=== PATIENT | female | born 1960 | race Caucasian/White ===

== ENCOUNTER 2016-06-21 14:38 | Emergency (ER) | payer OTHER ==
[~2016-06-21] VITALS: Ht 147.3 cm; Wt 53.5 kg
[~2016-06-21 14:38] MED LIST: FUROSEMIDE20 MG PO; PRILOSEC20 MG PO; SPIRONOLACTONE50 MG PO; TRAMADOL HCL50 MG PO
[2016-06-21 18:47] LABS: UA SPECIFIC GRAVITY 1.015 (1.005-1.035); microscopic required? YES; urine erythrocyte 2+ (NEGATIVE)
[2016-06-21 19:16] VITALS: BP 119/43
== END 2016-06-21 19:16 | disposition home or self-care (01) ==
LOC: ED 14:38
PROVIDERS: Emergency Medicine
DX: R32 Unspecified urinary incontinence (principal); K74.69 Other cirrhosis of liver; B18.2 Chronic viral hepatitis C

== ENCOUNTER 2016-11-02 11:49 | Emergency (ER) | payer OTHER ==
[2016-11-02 12:53] LABS: BASOPHIL % 0.2 % (0-2)
[2016-11-02 13:07] LABS: ALBUMIN 3.5 g/dL (3.4-5.0); ALKALINE PHOSPHATASE 138 U/L (46-116); ALT/SGPT 35 U/L (14-59); AMYLASE 97 U/L (25-115); AST/SGOT 52 U/L (15-37); BILIRUBIN TOTAL 1.6 mg/dL (0.20-1.00); CARBON DIOXIDE 25.3 mmol/L (21-32); CHLORIDE SERUM 107 mmol/L (98-107); CREATININE SERUM 0.7 mg/dL (0.6-1.0); GFR1 > 60 mL/min; GLUCOSE SERUM 93 mg/dL (74-106); LIPASE 540 IU/L (73-393); SODIUM SERUM 138 mmol/L (136-145)
[2016-11-02 13:09] LABS: RED CELL DISTRIBUTION WIDTH 17.1 % (11.5-14.5)
[2016-11-02 13:10] LABS: PLATELET COUNT 41 x10^3mcL (130-400)
[2016-11-02 13:11] LABS: CALCIUM 8.8 mg/dL (8.5-10.1)
[2016-11-02 13:14] LABS: TOTAL PROTEIN, SERUM 8.3 g/dL (6.4-8.2)
[2016-11-02 16:41] VITALS: BP 100/72
== END 2016-11-02 16:30 | disposition home or self-care (01) ==
LOC: ED 11:49
PROVIDERS: Emergency Medicine Emergency Medical Services
DX: K85.90 Acute pancreatitis without necrosis or infection, unspecified (principal); I10 Essential (primary) hypertension
CPT/HCPCS: J2405

== ENCOUNTER 2017-01-17 12:20 | Inpatient (IN) | payer OTHER ==
[~2017-01-17] VITALS: Ht 152.4 cm; Wt 48.8 kg
[~2017-01-17 12:20] MED LIST changes: +PRILOSEC OTC20 M1 PO; -PRILOSEC20 MG PO
[2017-01-17 14:11] LABS: UA SPECIFIC GRAVITY <=1.005 (1.005-1.035); microscopic required? YES; urine erythrocyte 1+ (NEGATIVE)
[2017-01-17 14:48] LABS: RED CELL DISTRIBUTION WIDTH 16.2 % (11.5-14.5)
[2017-01-17 14:56] LABS: CALCIUM 8.7 mg/dL (8.5-10.1); CARBON DIOXIDE 26.3 mmol/L (21-32); CHLORIDE SERUM 105 mmol/L (98-107); CREATININE SERUM 0.6 mg/dL (0.6-1.0); GFR1 > 60 mL/min; GLUCOSE SERUM 105 mg/dL (74-106); POTASSIUM SERUM 3.7 mmol/L (3.5-5.1); SODIUM SERUM 141 mmol/L (136-145)
[2017-01-17 15:01] LABS: ALKALINE PHOSPHATASE 141 U/L (46-116); ALT/SGPT 33 U/L (14-59); AST/SGOT 42 U/L (15-37); LIPASE 445 IU/L (73-393); TOTAL PROTEIN, SERUM 8.1 g/dL (6.4-8.2)
[2017-01-17 15:02] LABS: ALBUMIN 3.3 g/dL (3.4-5.0)
[2017-01-17 15:13] LABS: BAND NEUTROPHIL 0 % (0-10); BASOPHIL 0 % (0-2); MONOCYTE 8 % (0-7); SEGMENTED NEUTROPHILS 70 % (37-75)
[2017-01-17 15:14] LABS: rbc morphology (normal/abnorm) NORMAL (NORMAL)
[2017-01-17 15:20] LABS: PLATELET COUNT 42 x10^3mcL (130-400)
[2017-01-17] MEDS ORDERED: D3-50001 TAB (16:16)
[2017-01-17 16:38] LABS: CHOLESTEROL/HDL RATIO 2.6; MAGNESIUM 1.7 mg/dL (1.8-2.4)
[2017-01-17 16:45] LABS: T3 TOTAL 1.07 ng/mL
[2017-01-17 16:46] LABS: FREE T4 1.24 ng/dL (0.76-1.46); FREE THYROXINE INDEX 2.5 ug/dL (1.4-4.5); T4(THYROXINE) 7.8 ug/dL (4.7-13.3)
[2017-01-17 17:19] VITALS: BP 132/49
[2017-01-17 18:45] VITALS: Ht 152.4 cm; Wt 48.8 kg
[2017-01-17 21:07] LABS: AMPHETAMINE QUAL UR NONE DETECTED (NEG <=1000)
[2017-01-18 07:15] LABS: PLATELET COUNT 40 x10^3mcL (130-400); RED CELL DISTRIBUTION WIDTH 16.5 % (11.5-14.5)
[2017-01-18 07:16] LABS: CALCIUM 8.3 mg/dL (8.5-10.1); CARBON DIOXIDE 24.8 mmol/L (21-32); CHLORIDE SERUM 109 mmol/L (98-107); CREATININE SERUM 0.7 mg/dL (0.6-1.0); GFR1 > 60 mL/min; GLUCOSE SERUM 86 mg/dL (74-106); MAGNESIUM 1.7 mg/dL (1.8-2.4); PHOSPHOROUS 4.3 mg/dL (2.5-4.9); POTASSIUM SERUM 3.9 mmol/L (3.5-5.1); SODIUM SERUM 142 mmol/L (136-145)
[2017-01-18 08:38] LABS: BAND NEUTROPHIL 4 % (0-10); MONOCYTE 5 % (0-7); SEGMENTED NEUTROPHILS 71 % (37-75); rbc morphology (normal/abnorm) NORMAL (NORMAL)
[2017-01-18 08:39] LABS: PLATELET MORPHOLOGY PLATELETS DECREASED
[2017-01-18 09:52] VITALS: BP 101/43
[2017-01-18 14:05] VITALS: BP 102/55
[2017-01-18 18:09] VITALS: BP 108/44
[2017-01-18 20:27] VITALS: BP 109/54
[2017-01-19 06:28] VITALS: BP 97/45
[2017-01-19 06:28] LABS: CALCIUM 7.7 mg/dL (8.5-10.1); CARBON DIOXIDE 23.3 mmol/L (21-32); CHLORIDE SERUM 110 mmol/L (98-107); CREATININE SERUM 0.6 mg/dL (0.6-1.0); GFR1 > 60 mL/min; GLUCOSE SERUM 113 mg/dL (74-106); MAGNESIUM 1.8 mg/dL (1.8-2.4); POTASSIUM SERUM 3.7 mmol/L (3.5-5.1); SODIUM SERUM 141 mmol/L (136-145)
[2017-01-19 07:57] LABS: RED CELL DISTRIBUTION WIDTH 16.4 % (11.5-14.5)
[2017-01-19 09:25] VITALS: BP 102/55
[2017-01-19 11:46] LABS: BAND NEUTROPHIL 5 % (0-10); MONOCYTE 5 % (0-7); PLATELET MORPHOLOGY D; SEGMENTED NEUTROPHILS 70 % (37-75); rbc morphology (normal/abnorm) ABNORMAL (NORMAL)
[2017-01-19 12:33] VITALS: BP 113/72
[2017-01-19 12:37] VITALS: BP 113/72
[2017-01-19 14:20] LABS: PLATELET COUNT 35 x10^3mcL (130-400)
== END 2017-01-19 13:15 | disposition home or self-care (01) | DRG 689 ==
LOC: ED 12:20 → DU 16:00
PROVIDERS: Emergency Medicine; Family Medicine Sports Medicine; ADMIT Family Medicine
DX: N39.0 Urinary tract infection, site not specified (principal); G93.41 Metabolic encephalopathy; K86.1 Other chronic pancreatitis; E44.1 Mild protein-calorie malnutrition; K76.6 Portal hypertension; R31.9 Hematuria, unspecified; K74.69 Other cirrhosis of liver; B18.2 Chronic viral hepatitis C; R16.1 Splenomegaly, not elsewhere classified; D70.9 Neutropenia, unspecified; D64.9 Anemia, unspecified
CPT/HCPCS: 82962; 83880; 84439; 90658; J0696; J1885; J1956; J2405; J3490; J7030; J7042; Q0092; Q9967

== ENCOUNTER 2017-12-26 00:25 | Emergency (ER) | payer OTHER ==
[~2017-12-26 00:25] MED LIST changes: +D3-50001 TAB
[2017-12-26 03:25] LABS: BASOPHIL % 0.5 % (0-2)
[2017-12-26 03:27] LABS: UA SPECIFIC GRAVITY <=1.005 (1.005-1.035); microscopic required? YES; urine erythrocyte 1+ (NEGATIVE)
[2017-12-26 03:43] LABS: RED CELL DISTRIBUTION WIDTH 16.8 % (11.5-14.5)
[2017-12-26 03:45] LABS: PLATELET COUNT 45 x10^3mcL (130-400)
[2017-12-26 03:52] LABS: CALCIUM 9.1 mg/dL (8.5-10.1); CARBON DIOXIDE 22.7 mmol/L (21-32); CHLORIDE SERUM 109 mmol/L (98-107); CREATININE SERUM 0.6 mg/dL (0.6-1.0); GFR1 > 60 mL/min; GLUCOSE SERUM 104 mg/dL (74-106); POTASSIUM SERUM 4.2 mmol/L (3.5-5.1); SODIUM SERUM 142 mmol/L (136-145)
[2017-12-26 04:02] LABS: ALKALINE PHOSPHATASE 121 U/L (46-116); ALT/SGPT 31 U/L (14-59); AST/SGOT 36 U/L (15-37); BILIRUBIN TOTAL 0.94 mg/dL (0.20-1.00); LIPASE 418 IU/L (73-393); TOTAL PROTEIN, SERUM 7.5 g/dL (6.4-8.2)
[2017-12-26 04:05] LABS: ALBUMIN 3.1 g/dL (3.4-5.0)
[2017-12-26] MEDS ORDERED: FUROSEMIDE20 MG PO (04:54)
[2017-12-26] MEDS ORDERED: COLACE100 MG PO (04:54)
[2017-12-26] MEDS ORDERED: VITAMIN D3100 GM (04:54)
[2017-12-26] MEDS ORDERED: FERROUS SULFAT325 M2 PO (04:54)
[2017-12-26] MEDS ORDERED: PROPRANOLOL HCL10 MG PO ×2 (04:55)
[2017-12-26] MEDS ORDERED: LACTULOSE10 GM/152 PO (04:55)
[2017-12-26] MEDS ORDERED: ALDACTONE50 MG PO (04:56)
[2017-12-26] MEDS ORDERED: XIFAXAN550 M1 PO (04:56)
[2017-12-26] MEDS ORDERED: ACID REDUCER75 MG PO (04:58)
[2017-12-26 07:57] VITALS: BP 102/68
== END 2017-12-26 07:57 | disposition home or self-care (01) ==
LOC: ED 00:25
PROVIDERS: Emergency Medicine
DX: R10.11 Right upper quadrant pain (principal); R10.31 Right lower quadrant pain; R07.0 Pain in throat; M54.6 Pain in thoracic spine; I10 Essential (primary) hypertension; K74.60 Unspecified cirrhosis of liver; Z86.19 Personal history of other infectious and parasitic diseases
CPT/HCPCS: 36415; 83880; J1885; Q0092

== ENCOUNTER 2017-12-27 17:55 | Emergency (ER) | payer OTHER ==
[~2017-12-27] VITALS: Ht 149.9 cm; Wt 52.2 kg
[~2017-12-27 17:55] MED LIST changes: +ACID REDUCER75 MG PO; +ALDACTONE50 MG PO; +COLACE100 MG PO; +FERROUS SULFAT325 M2 PO; +LACTULOSE10 GM/152 PO; +PROPRANOLOL HCL10 MG PO; +VITAMIN D3100 GM; +XIFAXAN550 M1 PO
[2017-12-27 18:33] VITALS: Ht 149.9 cm; Wt 52.2 kg
[2017-12-28 01:15] VITALS: BP 104/67
== END 2017-12-28 01:15 | disposition home or self-care (01) ==
LOC: ED 17:55
DX: G43.909 Migraine, unspecified, not intractable, without status migrainosus (principal); I10 Essential (primary) hypertension; K74.60 Unspecified cirrhosis of liver; Z86.19 Personal history of other infectious and parasitic diseases
CPT/HCPCS: J1100; J1200; J1885; J2765; J7030